=== PATIENT | male | born 1980 | race Caucasian/White ===

== ENCOUNTER 2018-02-11 15:11 | Emergency (ER) | payer MEDICAID ==
[~2018-02-11] VITALS: Ht 198.1 cm; Wt 130.0 kg
[~2018-02-11 15:11] MED LIST: ALBU1.25 NEB; ASPI-621 PO; DIVA250T4 PO; IBUP-11 PO; LATA2.5D3 EACHEYE; LEVO125T5 PO; OXYC5TAB3 PO; PRAZ2CAP2 PO; SERT100T5 PO; SERT50TA PO; TRAZ-137 PO
[2018-02-11] MEDS ORDERED: PLEASE ENTER HEIGHT AND WEIGHT MC SCH (15:30)
[2018-02-11] MEDS ORDERED: ONDANSETRON ODT 4 MG PO ONE (15:30)
[2018-02-11] MEDS ORDERED: FAMOTIDINE 20 MG TABLET PO ONE (15:30)
[2018-02-11] MEDS ORDERED: ONDANSETRON ODT 4 MG ONE (15:40)
[2018-02-11] MEDS ORDERED: FAMOTIDINE 20 MG TABLET ONE (15:40)
[2018-02-11 15:45] LABS: BASOPHILS # (AUTO) 0.05 x10^3/uL (0-0.1); BASOPHILS % (AUTO) 1 % (0-1); EOSINOPHILS % (AUTO) 2 % (1-7); LYMPHOCYTES # (AUTO) 2.61 x10^3/uL (1-3.4); LYMPHOCYTES % (AUTO) 30 % (22-44); MD NO; MEAN CORPUSCULAR HEMOGLOBIN 31.7 pg (27.5-34.5); MEAN CORPUSCULAR HGB CONC 33.6 g/dL (33.2-36.2); MEAN CORPUSCULAR VOLUME 94.3 fL (81-97); MEAN PLATELET VOLUME 8.2 fL (7.4-10.4); MONOCYTES # (AUTO) 0.87 x10^3/uL (0.2-0.8); MONOCYTES % (AUTO) 10 % (2-9); NEUTROPHILS % (AUTO) 58 % (42-75); PLATELET COUNT 315 x10^3/uL (130-400); RED BLOOD COUNT 4.18 x10^6/uL (4.38-5.82); RED CELL DISTRIBUTION WIDTH 13.6 % (9.4-14.8)
[2018-02-11 15:58] LABS: ALANINE AMINOTRANSFERASE 17 U/L (12-78); ALBUMIN 3.6 g/dL (3.4-5.0); ANION GAP 14 mmol/L (5-15); CALCIUM 8.9 mg/dL (8.5-10.1); CHLORIDE 106 mmol/L (98-107); CREATININE 1.03 mg/dL (0.7-1.3)
[2018-02-11 16:00] LABS: ALKALINE PHOSPHATASE 69 U/L (45-117); BILIRUBIN,TOTAL 0.3 mg/dL (0.2-1.0)
[2018-02-11 17:03] VITALS: BP 124/81
== END 2018-02-11 17:05 | disposition home or self-care (01) ==
LOC: ED 16:40
DX: R11.2 Nausea with vomiting, unspecified (principal); R19.7 Diarrhea, unspecified; E03.9 Hypothyroidism, unspecified; F31.9 Bipolar disorder, unspecified; G40.909 Epilepsy, unspecified, not intractable, without status epilepticus; F43.10 Post-traumatic stress disorder, unspecified; Z87.891 Personal history of nicotine dependence
CPT/HCPCS: 36415; 80053; 83690; 85025; 99284; Q0162

== ENCOUNTER 2018-08-09 13:17 | Emergency (ER) | payer SELFPAY ==
[~2018-08-09] VITALS: Ht 198.1 cm; Wt 140.0 kg
[~2018-08-09 13:17] MED LIST changes: -ASPI-621 PO; +ASPI81TA45 PO; +SERT100T32 PO; -SERT100T5 PO
[2018-08-09] MEDS ORDERED: SODIUM CHLORIDE 0.9% 1,000 ML IV ONE (14:03)
[2018-08-09 14:20] LABS: BASOPHILS # (AUTO) 0.11 x10^3/uL (0-0.1); BASOPHILS % (AUTO) 1 % (0-1); EOSINOPHILS # (AUTO) 0.16 x10^3/uL (0-0.4); EOSINOPHILS % (AUTO) 2 % (1-7); LYMPHOCYTES # (AUTO) 2.29 x10^3/uL (1-3.4); LYMPHOCYTES % (AUTO) 26 % (22-44); MD NO; MEAN CORPUSCULAR HEMOGLOBIN 31.3 pg (27.5-34.5); MEAN CORPUSCULAR HGB CONC 33.7 g/dL (33.2-36.2); MEAN CORPUSCULAR VOLUME 92.7 fL (81-97); MEAN PLATELET VOLUME 8.4 fL (7.4-10.4); MONOCYTES # (AUTO) 0.85 x10^3/uL (0.2-0.8); MONOCYTES % (AUTO) 10 % (2-9); NEUTROPHILS # (AUTO) 5.56 x10^3/uL (1.8-6.8); NEUTROPHILS % (AUTO) 62 % (42-75); PLATELET COUNT 272 x10^3/uL (130-400); RED BLOOD COUNT 4.34 x10^6/uL (4.38-5.82); RED CELL DISTRIBUTION WIDTH 14.1 % (9.4-14.8)
[2018-08-09] MEDS ORDERED: SODIUM CHLORIDE 0.9% 1,000ML IVBOLUS ONE ×2 (14:30→15:30)
[2018-08-09] MEDS ORDERED: SODIUM CHLORIDE FLUSH 10ML SYR IVF ONE (14:30)
[2018-08-09 14:34] LABS: ALANINE AMINOTRANSFERASE 21 U/L (12-78); ANION GAP 11 mmol/L (5-15); CALCIUM 9.2 mg/dL (8.5-10.1); CHLORIDE 109 mmol/L (98-107); CREATININE 1.12 mg/dL (0.7-1.3)
[2018-08-09 14:36] LABS: ALKALINE PHOSPHATASE 60 U/L (45-117); BILIRUBIN,TOTAL 0.2 mg/dL (0.2-1.0); TOTAL PROTEIN 6.9 g/dL (6.4-8.2)
--- NOTE | 2018-08-09 14:50 | NUR ---
ASSUMED CARE OF PT AT THIS TIME. THIS IS A 37 YO MALE WHO PRESENTS TO THE ER COVERED IN FECES AFTER "EATING A BAD SANDWHICH AND I COULDN'T MAKE IT TO THE BATHROOM. I WAS HERE TO VISIT MY MOM SO I JUST CHECKED IN". PT WALKED TO SHOWER WHERE PT WAS CLEANED. PT STEADY UPON AMBULATION. NAD NOTED. SKIN PWD. RESP EVEN AND EQAUL. PT REPORTS MILD DIFFUSE ABD PAIN. NONTENDER TO PALP. WILL CONT TO MONITOR PT.
[2018-08-09 14:52] LABS: ACETONE, SERUM Negative (Negative)
[2018-08-09 15:03] LABS: MICROSCOPIC NOT IND
[2018-08-09 15:07] LABS: CULTURE INDICATED? NO
--- NOTE | 2018-08-09 16:10 | NUR ---
PT CURRENTLY RESTING ON [employer]. NAD NOTED. PT WATCHING TV, CHATTING PLEASANTLY WITH RN. PT AO X 4. SKIN PWD. RESP EVEN AND EQAUL. WILL CONT TO MONITOR PT.
[2018-08-09] MEDS ORDERED: METOCLOPRAMIDE 5 MG/ML, 2ML ONE (16:59)
[2018-08-09] MEDS ORDERED: METOCLOPRAMIDE 5 MG/ML, 2ML IVPush ONE (17:00)
--- NOTE | 2018-08-09 17:31 | NUR ---
PT MEDICATED ORDERED FOR NAUSEA. PT RESTING ON [employer] NOTED. PT WATCHING TV, CHATTING PLEASANTLY WITH RN. PT AO X 4. SKIN PWD. RESP EVEN AND EQAUL. PT AWARE WE ARE WAITING FOR IVF TO FINISH. PT ON CONT BP AND O2 MONITORS. CALL LIGHT WITHIN REACH. WILL CONT TO MONITOR PT.
[2018-08-09 18:21] VITALS: BP 118/71
== END 2018-08-09 18:23 | disposition home or self-care (01) ==
LOC: ED 15:54
DX: K52.89 Other specified noninfective gastroenteritis and colitis (principal); E86.0 Dehydration; E11.9 Type 2 diabetes mellitus without complications; F31.9 Bipolar disorder, unspecified; F43.10 Post-traumatic stress disorder, unspecified; Z88.8 Allergy status to other drugs, medicaments and biological substances; Z79.899 Other long term (current) drug therapy
CPT/HCPCS: 36415; 80053; 81003; 82010; 83605; 85025; 96361; 96374; 99283; J2765; J7030

== ENCOUNTER 2018-09-04 17:35 | Emergency (ER) | payer MEDICAID ==
[~2018-09-04] VITALS: Ht 198.1 cm; Wt 145.0 kg
--- NOTE | 2018-09-04 17:35 | NUR ---
Pt BIB EMS for a possible seizure. Pt states that he was in his room and then woke up on the ground, pt has a hx of seizures. Pt woke up and walked out to the nurses station at [facility], where he resides. Pt c/o headache at this time.
--- NOTE | 2018-09-04 17:44 | NUR ---
Dr. Padilla at bedside to evaluate pt.
--- NOTE | 2018-09-04 17:53 | NUR ---
Pt to imaging, with tech, via [employer].
[2018-09-04 18:24] LABS: BASOPHILS # (AUTO) 0.08 x10^3/uL (0-0.1); BASOPHILS % (AUTO) 1 % (0-1); EOSINOPHILS # (AUTO) 0.24 x10^3/uL (0-0.4); EOSINOPHILS % (AUTO) 2 % (1-7); LYMPHOCYTES # (AUTO) 2.84 x10^3/uL (1-3.4); LYMPHOCYTES % (AUTO) 29 % (22-44); MD NO; MEAN CORPUSCULAR HEMOGLOBIN 31.6 pg (27.5-34.5); MEAN CORPUSCULAR HGB CONC 33.8 g/dL (33.2-36.2); MEAN CORPUSCULAR VOLUME 93.6 fL (81-97); MEAN PLATELET VOLUME 7.7 fL (7.4-10.4); MONOCYTES # (AUTO) 0.76 x10^3/uL (0.2-0.8); MONOCYTES % (AUTO) 8 % (2-9); NEUTROPHILS # (AUTO) 5.97 x10^3/uL (1.8-6.8); NEUTROPHILS % (AUTO) 60 % (42-75); PLATELET COUNT 264 x10^3/uL (130-400); RED BLOOD COUNT 4.17 x10^6/uL (4.38-5.82); RED CELL DISTRIBUTION WIDTH 14.6 % (9.4-14.8)
[2018-09-04 18:39] VITALS: BP 132/92
--- NOTE | 2018-09-04 18:39 | NUR ---
RN in to re-assess pt, pt resting on gurney, playing on phone. No acute distress noted, VSS.
[2018-09-04 18:43] LABS: ANION GAP 10 mmol/L (5-15); CALCIUM 9.2 mg/dL (8.5-10.1); CHLORIDE 105 mmol/L (98-107)
--- NOTE | 2018-09-04 18:51 | NUR ---
SBAR report given to Raya LOPEZ. Pt resting on [employer], playing on phone, VSS.
== END 2018-09-04 19:44 | disposition home or self-care (01) ==
LOC: ED 18:24
DX: E04.1 Nontoxic single thyroid nodule (principal); G40.909 Epilepsy, unspecified, not intractable, without status epilepticus; E03.9 Hypothyroidism, unspecified; E11.9 Type 2 diabetes mellitus without complications; F31.9 Bipolar disorder, unspecified; F43.10 Post-traumatic stress disorder, unspecified; Z87.891 Personal history of nicotine dependence
CPT/HCPCS: 36415; 72125; 80048; 82040; 85025; 93005; 99284

== ENCOUNTER 2019-07-31 19:48 | Emergency (ER) | payer MEDICAID ==
[~2019-07-31] VITALS: Ht 198.1 cm; Wt 129.0 kg
[~2019-07-31 19:48] MED LIST changes: +ATOR20TA37 PO; +BENZ-17 PO; +BUDE10.2 INH; +BUSP15TA PO; +CYCL5TAB PO; +DIVA-61 PO; +GLIM4TAB8 PO; +HYDR-826 PO; +INSULIN SQ-INSULIN; +LEVO25TA4 PO; +LIDO700A20 TD; +LURA20TA PO; +METF500T27 PO; +MONT10TA11 PO; +NAPR-685 PO; +NYST60PO TP; +ONDA4TAB13 SL; +RANI150T4 PO; +SODI44SP NAS; -TRAZ-137 PO; +TRAZ-175 PO; +TRIAMCINOLONE 0.1% TP; +VIT1TABL67 PO
[2019-07-31] MEDS ORDERED: SODIUM CHLORIDE FLUSH 10ML SYR IVF ONE (20:00)
[2019-07-31] MEDS ORDERED: LORazepam 2 MG/ML, 1ML IVPush PRN (20:00)
--- NOTE | 2019-07-31 20:16 | NUR ---
zoë mcconnell in room for eval.pt to and from ct. lab at bedside. vss. r eye pupil constricts, unable to assess L pupil d/t glaucoma. speaking full sentences. a&ox4 gcs 15. neuros intact. full sensation throughout, jonas, able to walk to stretcher but c/o dizziness and nausea. call rushing in reach. as
[2019-07-31 20:40] LABS: BASOPHILS # (AUTO) 0.22 x10^3/uL (0-0.1); BASOPHILS % (AUTO) 2 % (0-1); EOSINOPHILS % (AUTO) 1 % (1-7); LYMPHOCYTES # (AUTO) 3.29 x10^3/uL (1-3.4); LYMPHOCYTES % (AUTO) 31 % (22-44); MD NO; MEAN CORPUSCULAR HEMOGLOBIN 28.9 pg (27.5-34.5); MEAN CORPUSCULAR HGB CONC 33.4 g/dL (33.2-36.2); MEAN CORPUSCULAR VOLUME 86.6 fL (81-97); MEAN PLATELET VOLUME 8.8 fL (7.4-10.4); MONOCYTES # (AUTO) 1.06 x10^3/uL (0.2-0.8); MONOCYTES % (AUTO) 10 % (2-9); NEUTROPHILS # (AUTO) 5.81 x10^3/uL (1.8-6.8); NEUTROPHILS % (AUTO) 56 % (42-75); PLATELET COUNT 350 x10^3/uL (130-400); RED BLOOD COUNT 4.47 x10^6/uL (4.38-5.82); RED CELL DISTRIBUTION WIDTH 15.5 % (9.4-14.8)
[2019-07-31 20:46] LABS: ALBUMIN 3.4 g/dL (3.4-5.0); ANION GAP 10 mmol/L (5-15); CALCIUM 9.4 mg/dL (8.5-10.1); CHLORIDE 105 mmol/L (98-107); CREATININE 1.18 mg/dL (0.7-1.3)
[2019-07-31 20:49] LABS: ALANINE AMINOTRANSFERASE 26 U/L (12-78); ALKALINE PHOSPHATASE 62 U/L (45-117); BILIRUBIN,TOTAL 0.1 mg/dL (0.2-1.0); TOTAL PROTEIN 6.6 g/dL (6.4-8.2)
[2019-07-31] MEDS ORDERED: ACETAMINOPHEN 500 MG TABLET ONE (20:52)
[2019-07-31 20:54] VITALS: BP 118/68
[2019-07-31] MEDS ORDERED: LORazepam 1MG TABLET PO ONE (21:00)
[2019-07-31] MEDS ORDERED: ACETAMINOPHEN 500 MG TABLET PO ONE (21:00)
[2019-07-31] MEDS ORDERED: LORazepam 1MG TABLET ONE (21:06)
== END 2019-07-31 21:12 | disposition home or self-care (01) ==
LOC: ED 21:09
DX: S06.9X1A Unspecified intracranial injury with loss of consciousness of 30 minutes or less, initial encounter (principal); G40.409 Other generalized epilepsy and epileptic syndromes, not intractable, without status epilepticus; I10 Essential (primary) hypertension; E11.9 Type 2 diabetes mellitus without complications; E03.9 Hypothyroidism, unspecified; Z87.891 Personal history of nicotine dependence; X58.XXXA Exposure to other specified factors, initial encounter; Y93.89 Activity, other specified; Y92.89 Other specified places as the place of occurrence of the external cause; Y99.8 Other external cause status
CPT/HCPCS: 36415; 70450; 72125; 80053; 85025; 93005; 99285

== ENCOUNTER 2020-07-08 15:22 | Emergency (ER) | payer MEDICAID ==
[~2020-07-08] VITALS: Ht 198.1 cm; Wt 132.0 kg
[~2020-07-08 15:22] MED LIST changes: -LATA2.5D3 EACHEYE; +LATA2.5D4 EACHEYE; -MONT10TA11 PO; +MONT10TA17 PO; -OXYC5TAB3 PO; +OXYC5TAB98 PO
--- NOTE | 2020-07-08 15:45 | NUR ---
Pt arrived via [facility]. Had unwitnessed seizure with loss of bowel function at about 1530 today. Cleaned pt up. Seizure pads in place. Hooked up to monitor. Provider at bedside. Pt A+0 x4. Pt has hx diabetes and seizures. Last seizure was 06/23/2020.
--- NOTE | 2020-07-08 16:08 | NUR ---
Lab at bedside
[2020-07-08 16:18] LABS: BASOPHILS % (AUTO) 1 % (0-1); EOSINOPHILS % (AUTO) 1 % (1-7); LYMPHOCYTES % (AUTO) 30 % (22-44); MEAN CORPUSCULAR HEMOGLOBIN 28.3 pg (27.5-34.5); MONOCYTES % (AUTO) 10 % (2-9); NEUTROPHILS % (AUTO) 59 % (42-75); PLATELET COUNT 330 x10^3/uL (130-400); RED BLOOD COUNT 4.24 x10^6/uL (4.38-5.82); RED CELL DISTRIBUTION WIDTH 15.1 % (9.4-14.8)
[2020-07-08 16:23] LABS: MD NO
--- NOTE | 2020-07-08 16:25 | NUR ---
Pt at imaging.
[2020-07-08 16:27] LABS: ALANINE AMINOTRANSFERASE 23 U/L (12-78); ALBUMIN 3.6 g/dL (3.4-5.0); ANION GAP 10 mmol/L (5-15); CALCIUM 8.6 mg/dL (8.5-10.1); CHLORIDE 105 mmol/L (98-107); CREATININE 1.15 mg/dL (0.7-1.3)
[2020-07-08 16:29] LABS: ALKALINE PHOSPHATASE 57 U/L (45-117); BILIRUBIN,TOTAL 0.4 mg/dL (0.2-1.0)
--- NOTE | 2020-07-08 16:30 | NUR ---
Pt back from imaging.
--- NOTE | 2020-07-08 17:27 | NUR ---
IV removed, catheter intact, hemostasis achieved, dressing applied.
[2020-07-08 17:35] VITALS: BP 127/78
--- NOTE | 2020-07-08 17:52 | NUR ---
Cleaned pt's shoes. Provided pt clean new underwear, pants and socks.
== END 2020-07-08 17:53 ==
LOC: ED 17:40
DX: S09.90XA Unspecified injury of head, initial encounter (principal); R56.9 Unspecified convulsions; I10 Essential (primary) hypertension; E11.9 Type 2 diabetes mellitus without complications; E03.9 Hypothyroidism, unspecified; J45.909 Unspecified asthma, uncomplicated; X58.XXXA Exposure to other specified factors, initial encounter; Y93.89 Activity, other specified; Y92.89 Other specified places as the place of occurrence of the external cause; Y99.8 Other external cause status
CPT/HCPCS: 36415; 70450; 80053; 80164; 85025; 99284

== ENCOUNTER 2020-12-16 20:34 | Emergency (ER) | payer MEDICAID ==
[~2020-12-16] VITALS: Ht 198.1 cm; Wt 126.3 kg
[2020-12-16 20:45] VITALS: BP 123/57
--- NOTE | 2020-12-16 20:49 | NUR ---
Pt brought in by EMS for seizure x2. First seizure occurred "a few hours ago" witnessed by roommate, grand mal in nature lasted approx 5-10 mins. 2nd seizure unwitnessd, denied any trauma. Woke up on the ground, decided to call 911 at that point in time. Pt alert and oriented x4 upon arrival, GCS 15. Did not bite tongue, no airway compromise. Ambulatory from [facility] to room upon arrival. Hx of seizures, on Depakote, compliant with med regimen.
--- NOTE | 2020-12-16 21:13 | NUR ---
Labs sent at this time.
[2020-12-16 21:26] LABS: BASOPHILS % (AUTO) 1 % (0-1); EOSINOPHILS % (AUTO) 1 % (1-7); LYMPHOCYTES % (AUTO) 32 % (22-44); MEAN CORPUSCULAR HEMOGLOBIN 27.9 pg (27.5-34.5); MEAN PLATELET VOLUME 7.8 fL (7.4-10.4); MONOCYTES % (AUTO) 12 % (2-9); NEUTROPHILS % (AUTO) 54 % (42-75); PLATELET COUNT 291 x10^3/uL (130-400); RED BLOOD COUNT 4.73 x10^6/uL (4.38-5.82); RED CELL DISTRIBUTION WIDTH 16.9 % (9.4-14.8)
[2020-12-16 21:31] LABS: ALANINE AMINOTRANSFERASE 23 U/L (12-78); ALBUMIN 3.4 g/dL (3.4-5.0); ANION GAP 8 mmol/L (5-15); CALCIUM 9.2 mg/dL (8.5-10.1); CHLORIDE 106 mmol/L (98-107); CREATININE 1.22 mg/dL (0.7-1.3)
[2020-12-16 21:34] LABS: ALKALINE PHOSPHATASE 48 U/L (45-117); BILIRUBIN,TOTAL 0.3 mg/dL (0.2-1.0); TOTAL PROTEIN 6.6 g/dL (6.4-8.2)
[2020-12-16] MEDS ORDERED: KETOROLAC 30 MG/1 ML ONE (21:58)
[2020-12-16] MEDS ORDERED: METOCLOPRAMIDE 5 MG/ML, 2ML ONE (21:59)
[2020-12-16] MEDS ORDERED: KETOROLAC 30 MG/1 ML IVPush ONE (22:00)
[2020-12-16] MEDS ORDERED: METOCLOPRAMIDE 5 MG/ML, 2ML IVPush ONE (22:00)
--- NOTE | 2020-12-16 22:50 | NUR ---
Patient/Caregiver given discharge instructions and they have confirmed that they understand the instructions. Patient ambulatory with steady gait. NAD, all questions answered appropriately, denies additional needs at this time. No personal belongings left in room after discharge.
== END 2020-12-16 22:56 | disposition home or self-care (01) ==
LOC: ED 20:49
DX: G40.409 Other generalized epilepsy and epileptic syndromes, not intractable, without status epilepticus (principal); R51.9 Headache, unspecified; E11.9 Type 2 diabetes mellitus without complications; I10 Essential (primary) hypertension; E03.9 Hypothyroidism, unspecified
CPT/HCPCS: 36415; 80053; 80164; 80320; 85025; 93005; 96374; 96375; 99284; J1885; J2765; G0480